=== PATIENT | female | born 1940 | race Caucasian/White ===

== ENCOUNTER 2016-08-21 10:06 | Inpatient (IN) | payer MEDICARE ==
[~2016-08-21] VITALS: Ht 153 cm; Wt 87.3 kg
[2016-08-21] VITALS (8 sets, daily range): BP systolic 146–181; BP diastolic 86–106; PULSE 70–88; RESP 17–22; O2SAT 94–99
[~2016-08-21 10:06] MED LIST: CHOL10008 PO; FENO145T19 PO; HYDR-4003 PO; LISI40TA PO; MULT-1018 PO; OMEG-38 PO; RIVA10TA PO; SIMV20TA4 PO
--- NOTE | 2016-08-21 10:17 | ED.REPORT ---
HPI-Dyspnea / Wheezing Date of Service Aug 21, 2016 ED Provider: Valente Dugan MD 76 year old female with a history of anxiety, HTN, and hyperlipidemia presents to the ER complaining of episodic shortness of breath onset "a couple weeks ago ", worsening today. She reports that symptoms onset upon receiving the bill for her recent hip replacement surgery, and attributes her symptoms to anxiety surrounding this. Symptoms are exacerbated by minimal exertion, and relieved by remaining at rest. Typically it takes her 10 minutes to recover from these episodes. Associated symptom of chest pressure described as "heaviness". Patient denies chest pain, diaphoresis, nausea, lightheadedness, and history of significant cardiopulmonary disease. Nursing Notes Stated Complaint: HARD TIME BREATHING Chief Complaint: Respiratory Complaints Nursing Notes Reviewed: Yes ([employer], [employer] not reconciled) Allergies: Coded Allergies: Penicillins (Verified Allergy, Unknown, throat swelling, 08/21/16) Scheduled Cholecalciferol (Vitamin D3) (Vitamin D3) 1,000 Unit Tab.chew 1,000 UNIT PO DAILY Fenofibrate Nanocrystallized (Fenofibrate) 145 Mg Tablet 145 MG PO DAILY Lisinopril (Lisinopril) 40 Mg Tablet 40 MG PO DAILY Multivitamin (Multi Vitamin Daily) 1 Each Tablet 1 EACH PO DAILY [place]-3/Dha/Epa/Fish Oil (Fish Oil 1,000 mg Softgel) 1 Each Capsule 1 EACH PO DAILY Rivaroxaban (Xarelto) 10 Mg Tablet 10 MG PO DAILY Simvastatin (Simvastatin) 20 Mg Tablet 20 MG PO HS Scheduled PRN Hydrocodone-Acetaminophen 5-325 mg (Hydrocodone-Acetaminophen 5-325 mg) 1 Each Tablet 1 TABLET PO Q6H PRN PRN For Pain General Time Seen by MD: 10:16 Chief Complaint Shortness of breath Hx Obtained From: Patient Arrived By: Walk-in Sudden in Onset?: Yes Onset Occurred: More than a week ago... ("a couple weeks ago") Context of Onset: Anxiety Symptom Duration: Intermittent Associated with: Reports: Anxiety, Denies: Diaphoresis, Nausea, Vomiting Context Related History: Reports: Anxiety Past Medical History Past Medical History Hypertension Hyperlipidemia "Prediabetes" History of osteoarthrosis History of anxiety and depression History of rectal cancer, s/p chemo and radiation ho benign pancreas and adrenal mass (pt reports extensive w/u 2015) Past Surgical History Left hip 06/2016 Partial hysterectomy splenectomy (2016) Social History Alcohol Use: Denies alcohol use Drug Use: Denies drug use Review of Systems Review of Systems Note: +Chest Pressure Constitutional: Denies: Chills, Fever Respiratory: Reports: Shortness of breath, Denies: Non-productive cough Cardiovascular: Denies: Chest pain Musculoskeletal: Denies: Back pain, Extremity pain, Joint pain, Lumbar pain, Neck pain, Thoracic pain Skin: Denies Diaphoresis Complete sys rev & neg: except as marked. Neurologic: Denies: Dizziness, Headache, Lightheaded Psychiatric: Reports: Anxiety, Stress Physical Exam Initial Vital Signs Vital Signs (First) Date Time Temp Pulse Resp B/P Pulse Ox O2 Delivery O2 Flow Rate FiO2 08/21/16 10:11 36.2 88 22 181/106 98 Room Air 08/21/16 13:56 2 Initial VS: Reviewed, Vital signs abnormal (severe HTN) Head / Eyes: Atraumatic, Normocephalic Abdomen / GI: Soft, Non-tender, No guarding, No rebound, No distention Extremities: Vascular intact, Neuro intact, No swelling, No tenderness Skin: Warm, Dry, No cyanosis Neurologic: Alert, Oriented, Nonfocal General/Constitutional: Awake, Alert, Well developed, Well nourished Distress / Hydration: Positive: Distress mild Behavior: Positive: Anxious Neck: Atraumatic, Supple, No meningismus, Full range of motion, No swelling, Non-tender, No masses Respiratory / Chest: Breath sounds NL, Breath sounds = bilat, No respiratory distress, No rales, No rhonchi, No wheezing, No retractions, No stridor Cardiovascular: Heart rate NL, Regular rhythm, Heart sounds NL, Peripheral circulation NL Interpretation & Diagnostics Lab Results Interpretation Result Diagram: 08/21/16 1037 08/21/16 1037 Test 08/21/16 10:37 White Blood Count 9.7th/mm3 (3.8-10.1) Red Blood Count 4.08mil/mm3 (3.90-5.20) Hemoglobin 12.5g/dL (12.0-15.6) Hematocrit 38.2% (35.0-46.0) Mean Corpuscular Volume 93.6fL (81-100) Mean Corpuscular Hemoglobin 30.6pg (27.0-35.0) Mean Corpuscular Hemoglobin Concent 32.7% (32.0-37.0) Red Cell Distribution Width 14.2% (12.3-15.4) Platelet Count 355bil/L (150-400) Neutrophils (%) (Auto) 68.0% (40-74) Lymphocytes (%) (Auto) 17.9% (14-46) Monocytes (%) (Auto) 10.8% (4-12) Eosinophils (%) (Auto) 2.9% (0-5) Basophils (%) (Auto) 0.2% (0-3) D-Dimer 12.3mg/L (<0.50) Sodium Level 139mEq/L (134-144) Potassium Level 4.1mEq/L (3.5-5.2) Chloride Level 102mEq/L (97-108) Carbon Dioxide Level 22mmol/L (18-29) Blood Urea Nitrogen 18mg/dL (8-27) Creatinine 0.79mg/dL (0.57-1.00) Estimat Glomerular Filtration Rate 102mL/min (>59) Glucose Level 153mg/dL (60-99) Calcium Level 9.6mg/dL (8.5-10.1) Magnesium Level 1.8mg/dL (1.6-2.6) Total Bilirubin 0.4mg/dL (0.0-1.2) Aspartate Amino Transf (AST/SGOT) 24U/L (0-50) Alanine Aminotransferase (ALT/SGPT) 16U/L (0-32) Alkaline Phosphatase 56U/L (25-165) Troponin T < 0.010ug/L (0.0-0.011) Total Protein 7.4g/dL (6.4-8.4) Albumin 4.1g/dL (3.4-5.0) Lab Results Interpretation: CBC normal CMP normal D-dimer severely elevated Troponin negative ECG Interpretation ECG Interpretation: Sinus rhythm, rate 69 Time: 10:39 Interpreted by: ED physician X-Ray Chest Interpretation Chest Xray Interpretation: IMPRESSION: No acute pulmonary process. Dictated by: Yolis Broussard M.D. on 08/21/2016 at 11:23 Approved by: Yolis Broussard M.D. on 08/21/2016 at 11:23 View: Portable, 1 view Interpretation / Wet Read by: Interpret - Radiologist CT Chest Interpretation IMPRESSION: 1. Bilateral, right greater than left pulmonary emboli. 2. New left upper quadrant abnormality as described above, possibly indicating chronic hematoma. IV and oral contrast enhanced CT of the abdomen and pelvis is recommended for further assessment, and to exclude neoplasm. 3. No change in right adrenal adenoma versus adenomyelolipoma. 4. Findings discussed with Dr. Dugan on 08.21.16 at 1315 hrs. Dictated by: Allison Jones M.D. on 08/21/2016 at 13:26 Approved by: Allison Jones M.D. on 08/21/2016 at 13:26 Study type: CT pulm angiogram Interpretation / Wet Read by: Interpret - Radiologist Re-Eval/Medical Decision Med Decision/Clinical Course This is a 76-year-old female who in June underwent a left hip replacement, who now presents with increasing dyspnea on exertion. Symptoms worsen over the past couple weeks, and she reports even minimal exertion leaves her gasping for air. She has been wanted to blame it on anxiety, finally decided to come to the emergency department when her neighbor came over to help her collect X were chickens, and noticed how severely began with minimal exertion, I commented that that was dramatically unusual. Therefore the patient came directly to the ED. Denies fever, cough, she denies symptoms at rest, she denies leg swelling. She denies prior history of DVT PE. She reports a previous history of a treated treated malignancy, and then noticed she was diagnosed with an incidental benign abdominal pancreatic(?) Mass which reports undergoing an extensive workup through oncology over last year, for which she was told it was benign, and then no findings of malignancy. Details are unclear. Here in the department apparently the patient was quite dipstick when she walked into triage, on resting on the gurney, the patient is not visibly dyspneic. She has clear lungs, she is not tachycardic or hypoxic. She is mildly hypertensive. EKG revealed no ischemic changes. Blood work was notable for severely elevated d-dimer so this patient's undergone recent hip surgery a CT angios obtained and was positive for PE. An incidental density in the abdomen was noted, which sounds like it may be the abnormality patient describes as having undergone extensive workup last year for-I do not have clear records or details of what all was involved in that. Patient has no troponin elevation, no overt signs of failure, no hemodynamic instability and is not a candidate for TPA. No contraindications to quite ablation, started on heparin. She is being admitted for continued management was likely a postsurgical PE 6 weeks following hip surgery. Source of Hx: Old records Re-Evaluation/Progress #1: Time of Eval: 13:19 Re-Evaluation/Progress Note: Discussed lab and radiology results and plan to admit. Patient understands and agrees to the plan. All other questions addressed. Re-Evaluation/Progress #2: Time of Eval: 14:50 Re-Evaluation/Progress Note: Updated re: bed capacity. Attempting to locate beds, currently none available. Re-Evaluation/Progress #3: Time of Eval: 15:25 Re-Evaluation/Progress Note: Currently no beds available at [facility], and no other beds identified locally Bed search remains underway. Re-Evaluation/Progress #4: Time of Eval: 15:34 Re-Evaluation/Progress Note: Bed identified here, patient can go to the PCU Consultation #1: Referral / Consult Name: Allison Jones MD Call Returned at: 13:06 Note: Dr. Jones, Radiology, called to discuss CT results. Positive for PE. Consultation #2: Referral / Consult Name: Edvin Gusman MD Consulted With: Hospitalist Call Returned at: 15:35 Associate Counsel: Accepts admit Note: Case discussed. Differential Diagnosis: Positive: Pulmonary embolism, Negative: Acute coronary syndrome, Cardiogenic shock, Congestive heart failure, Hypertensive emergency, Myocardial infarction, Pericarditis, Pneumonia , Pneumothorax, Respiratory failure, Respiratory insufficiency Counseled Regarding: Diagnosis, Lab results, Need for admission Discharge & Departure Impression: Primary Impression: Pulmonary embolism Pulmonary embolism type: other Chronicity: acute Acute cor pulmonale presence: without acute cor pulmonale Qualified Code: I26.99 - Other pulmonary embolism without acute cor pulmonale Disposition: ADMITTED TO HOSPITAL Discharge Condition All VS Reviewed: Yes Condition: Stable Referrals: Pinky Nolen PA-C (PCP) Gallo Attestation Portions of this note were transcribed by Toi Sarkar. I, Dr. Dugan, personally performed the history, physical exam and medical decision-making; I reviewed and confirmed the accuracy of the information in the transcribed note. Signed by: Gallo Rivero, 08/21/2016 and 14:33 copies to: Pinky Nolen PA-C, Matthew F MD Aug 21, 2016 10:17 TOI SARKAR Aug 21, 2016 10:25
[2016-08-21 10:48] LABS: BASOPHILS % (AUTO) 0.2 % (0-3); EOSINOPHILS % (AUTO) 2.9 % (0-5); MONOCYTES % (AUTO) 10.8 % (4-12); Mean Corpuscular Hemoglobin 30.6 pg (27.0-35.0); Mean Corpuscular Volume 93.6 fL (81-100); Platelet Count 355 bil/L (150-400)
[2016-08-21 11:18] LABS: TROPONIN T < 0.010 ug/L (0.0-0.011)
[2016-08-21 11:24] LABS: Magnesium 1.8 mg/dL (1.6-2.6)
--- NOTE | 2016-08-21 11:24 | DRSVH ---
PROCEDURE: X-RAY CHEST ONE VIEW, PORTABLE ([id number]) INDICATIONS: SOB TECHNIQUE: One view of the chest was acquired. COMPARISON: [facility], , XR CHEST 2VW, 04/22/2015, 11:40. FINDINGS: Surgical changes and devices: None. Lungs and pleura: No pleural effusions or pneumothorax. Lungs are clear. Mediastinum: Mediastinal contours appear normal. Heart size is mildly enlarged. Bones and chest wall: No suspicious bony lesions. Overlying soft tissues appear unremarkable. IMPRESSION: No acute pulmonary process. Dictated by: Yolis Broussard M.D. on 08/21/2016 at 11:23 Approved by: Yolis Broussard M.D. on 08/21/2016 at 11:23
[2016-08-21] MEDS ORDERED: Heparin 25K Unit/500mL 0.45 NS 25,000 UNIT in IV Premix 1 EACH IV ONE (13:10)
[2016-08-21] MEDS ORDERED: Heparin 5,000 Unit/mL Inj IVPUSH ONE (13:10)
--- NOTE | 2016-08-21 13:28 | DRSVH ---
PROCEDURE: CT ANGIO CHEST PULMONARY EMBOLISM ([id number]) INDICATIONS: STRANGE, Dimer 12.9 TECHNIQUE: After the administration of intravenous contrast, 2 mm thick sections acquired from the pulmonary api eddie to the posterior costophrenic angles. 3-dimensional maximum intensity projection (MIP) coronal a nd sagittal reformats were then acquired through the thorax. For radiation dose reduction, the follo wing was used: automated exposure control, adjustment of mA and/or kV according to patient size. COMPARISON: [facility], CT, ABDOMEN W&W/O CONTRAST, 02/17/2015, 8:31. FINDINGS: Image quality: Excellent. Pulmonary arteries: There are occlusive filling defects seen within the right upper lobe pulmonary ar leanna, extending into the segmental and subsegmental branches of the right upper lobe. There are filli ng defects seen within the segmental and subsegmental branches of the right middle and right lower lo bes. There are subsegmental filling defects seen within the pulmonary arteries to the lingula and lef t medial lung base. Lungs and pleura: Lungs are clear. No pleural effusions or pneumothorax. Central and peripheral ai rways are patent. Mediastinum: Heart size is normal, without pericardial effusion. No mediastinal or hilar adenopathy . Thoracic aorta is normal in caliber and enhancement. Esophagus is normal in caliber, without hiat al hernia. Bones and chest wall: No suspicious bony lesions. Ribs and thoracic spine appear intact throughout. Thyroid gland is within normal limits. No axillary or supraclavicular adenopathy. Abdomen: Visualized portions of the upper abdomen demonstrate a new, incompletely visualized 12.4 cm diameter low-density focus with a small amount of layering high density, possibly indicating a chron ic hematoma. There is mass effect upon the gastric body. No change in low-density right adrenal nodul e measuring 28 mm, and 8 Hounsfield units, consistent with an adenoma or adenomyelolipoma. IMPRESSION: 1. Bilateral, right greater than left pulmonary emboli. 2. New left upper quadrant abnormality as described above, possibly indicating chronic hematoma. IV a nd oral contrast enhanced CT of the abdomen and pelvis is recommended for further assessment, and to exclude neoplasm. 3. No change in right adrenal adenoma versus adenomyelolipoma. 4. Findings discussed with Dr. Dugan on 08.21.16 at 1315 hrs. Dictated by: Allison Jones M.D. on 08/21/2016 at 13:26 Approved by: Allison Jones M.D. on 08/21/2016 at 13:26
[2016-08-21] MEDS ORDERED: Alum-Mag Hydrox-Simeth 30 mL Suspension PO PRN (15:35)
[2016-08-21] MEDS ORDERED: Ondansetron 2 mg/mL 2 mL Inj IVPUSH PRN (15:35)
--- NOTE | 2016-08-21 15:44 | PCM.HPMED ---
Subjective Date of Service Aug 21, 2016 Primary Provider: Admitting Physician: Primary Care Physician: Pinky Nolen PA-C Attending Physician: Chief Complaint: Short of breath on exertion HISTORY was OBTAINED FROM PATIENT / MEDITECH NOTES History of present illness 74-year-old female, underwent hip replacement Dr. Heredia, discharged with xarelto on 06/27- for 35 days untilthe end of July, then she started using celebrex since no longer on blood thinner, at which point at the beginning of August, started gradual SOB. In the ER, pt indicates 1.5 weeks of shortness of breath on exertion, progressive, most notable today for walking across the room by her neighbors. No phelgm, no cough , no f/c, no O2 before. no inhalers except after 1 pneumonia. no ASA use. splenectomy hx 2015 due to hemorrhage intra op w/ pancreatic benign mass removed at . no estrogen use. She sees regularly Dr. Leigh/Oncology, with no recurrent rectal cancer. last colonscopy/EGD 2015. not immobilized, very active. Prior to splenectomy, no prior VTE post op. In ER, HDS, 148/92 , heparin gtt started, Ativan for anxiety Review of Systems - none of the following - F/C/sick contact / wt change/ [place] / lightheaded / dizziness / n/v/diarrhea/constipation / bleeding/bruising / leg swelling / change in voiding / yeast infections / rash poor appetite since hip replacement. GERD w/ herbal tea. ambulatory w/o assist currently FAMILY HX no DVTs, arthritis SOCIAL HX-edible marijuana, never smoked MEDICATIONS Scheduled Cholecalciferol (Vitamin D3) (Vitamin D3) 1,000 Unit Tab.chew 1,000 UNIT PO DAILY Fenofibrate Nanocrystallized (Fenofibrate) 145 Mg Tablet 145 MG PO DAILY Lisinopril (Lisinopril) 40 Mg Tablet 40 MG PO DAILY Multivitamin (Multi Vitamin Daily) 1 Each Tablet 1 EACH PO DAILY [place]-3/Dha/Epa/Fish Oil (Fish Oil 1,000 mg Softgel) 1 Each Capsule 1 EACH PO DAILY Rivaroxaban (Xarelto) 10 Mg Tablet 10 MG PO DAILY -- off Simvastatin (Simvastatin) 20 Mg Tablet 20 MG PO HS Scheduled PRN Hydrocodone-Acetaminophen 5-325 mg (Hydrocodone-Acetaminophen 5-325 mg) 1 Each Tablet 1 TABLET PO Q6H PRN PRN For Pain Past Medical/Surgical HX Hypertension Hyperlipidemia "Prediabetes" History of anxiety and depression Cataracts Pneumonia Rectal cancer, s/p chemo and radiation pancreatectomy/splenectomy Hysterectomy/urinary incontinence OAB DJD/osteoarthritis/left knee replacement Cholecystectomy Allergies Coded Allergies: Penicillins (Verified Allergy, Unknown, throat swelling, 08/21/16) PMH Social History Hx Alcohol Use: No Hx Substance Use: Yes (edible marijuana- randomly) Exam Vital Signs Vital Sign - Last Date Time Temp Pulse Resp B/P Pulse Ox O2 Delivery O2 Flow Rate FiO2 08/21/16 13:56 70 19 148/92 95 Nasal Cannula 2 08/21/16 10:11 36.2 Lab and Diagnostics Labs Exam on admission 2L NC NAD A and O x 3 mood affect WNL NC/AT no icterus no injected eyes EOMI PERRL /no pharyngeal lesions/ no oral lesions / hearing intact Supple neck CTAB equal chest rise / no accessory muscle use / speaks in full sentences / no rrw RRR S1 S2 / no mrg / 2+ radial pulses Soft nt nd + BS no hepatosplenomegaly Trace left angel edema no edema right leg, no cyanosis no ecchymosis of lower extremities No rash / no jaundice HADLEY EKG 69SR, no ST changes except subtle T inversion in Right lead Qt 442 Trop neg x 1 PROCEDURE: CT ANGIO CHEST PULMONARY EMBOLISM ([id number]) INDICATIONS: STRANGE, Dimer 12.9 TECHNIQUE: After the administration of intravenous contrast, 2 mm thick sections acquired from the pulmonary apices to the posterior costophrenic angles. 3-dimensional maximum intensity projection (MIP) coronal and sagittal reformats were then acquired through the thorax. For radiation dose reduction, the following was used: automated exposure control, adjustment of mA and/or kV according to patient size. COMPARISON: [facility], CT, ABDOMEN W&W/O CONTRAST, 02/17/2015, 8: 31. FINDINGS: Image quality: Excellent. Pulmonary arteries: There are occlusive filling defects seen within the right upper lobe pulmonary artery, extending into the segmental and subsegmental branches of the right upper lobe. There are filling defects seen within the segmental and subsegmental branches of the right middle and right lower lobes. There are subsegmental filling defects seen within the pulmonary arteries to the lingula and left medial lung base. Lungs and pleura: Lungs are clear. No pleural effusions or pneumothorax. Central and peripheral airways are patent. Mediastinum: Heart size is normal, without pericardial effusion. No mediastinal or hilar adenopathy. Thoracic aorta is normal in caliber and enhancement. Esophagus is normal in caliber, without hiatal hernia. Bones and chest wall: No suspicious bony lesions. Ribs and thoracic spine appear intact throughout. Thyroid gland is within normal limits. No axillary or supraclavicular adenopathy. Abdomen: Visualized portions of the upper abdomen demonstrate a new, incompletely visualized 12.4 cm diameter low-density focus with a small amount of layering high density, possibly indicating a chronic hematoma. There is mass effect upon the gastric body. No change in low-density right adrenal nodule measuring 28 mm, and 8 Hounsfield units, consistent with an adenoma or adenomyelolipoma. CTPE - IMPRESSION: 1. Bilateral, right greater than left pulmonary emboli. 2. New left upper quadrant abnormality as described above, possibly indicating chronic hematoma. IV and oral contrast enhanced CT of the abdomen and pelvis is recommended for further assessment, and to exclude neoplasm. 3. No change in right adrenal adenoma versus adenomyelolipoma. 4. Findings discussed with Dr. Dugan on 08.21.16 at 1315 hrs. PROCEDURE: X-RAY CHEST ONE VIEW, PORTABLE ([id number]) INDICATIONS: SOB TECHNIQUE: One view of the chest was acquired. COMPARISON: [facility], CR, XR CHEST 2VW, 04/22/2015, 11:40. FINDINGS: Surgical changes and devices: None. Lungs and pleura: No pleural effusions or pneumothorax. Lungs are clear. Mediastinum: Mediastinal contours appear normal. Heart size is mildly enlarged. Bones and chest wall: No suspicious bony lesions. Overlying soft tissues appear unremarkable. IMPRESSION: No acute pulmonary process. Result Diagram: 08/21/16 1037 08/21/16 1037 Assessment & Plan Active issues and reason for admission Right greater than left pulmonary embolism due to hypercoagulable state associated with splenectomy and recent hip replacement, complicated by incidental chronic hematoma and history of rectal cancer. -- Heparin drip, dural toe 15 twice a day 3 weeks then 20 daily. -- Call her oncologist in the morning Dr. Salas. Question of Chronic hematoma on the lateral aspect of the chest CT and prior cancer history -- Pending CT abdomen and pelvis by mouth IV contrast Chronic issues known prior to admission, present on admission Hypertension Hyperlipidemia "Prediabetes" History of anxiety and depression Rectal cancer, s/p chemo and radiation pancreatectomy/splenectomy Hysterectomy/urinary incontinence OAB DJD/osteoarthritis/left knee replacement Cholecystectomy --- Sliding scale insulin, resume home medications Diet diabetic DVT prophylaxis anticoagulated Code full Disposition inpatient Assessment and plan were discussed with patient. Edvin Gusman MD Aug 21, 2016 15:44
--- NOTE | 2016-08-21 18:24 | NUR ---
Admit Pt. transferred from ER. On arrival, she was alert and oriented x3. Oriented pt. to room, call light, TV, etc. Instructed pt. to call for assistance before exiting bed due to her SOBOE. Heparin IV started in ER. It's infusing at 18 u/kg/hr. Next PTT scheduled at 1900. Indications and side effects of Heparin IV discussed. Pt. verbalized understanding.
[2016-08-21 20:24] LABS: APPEARANCE,URINE CLEAR (CLEAR,HAZY); COLOR,URINE YELLOW (YELLOW); OCCULT BLOOD,URINE NEGATIVE (NEGATIVE); UROBILINOGEN,URINE NORMAL (NORMAL)
[2016-08-21] MEDS ORDERED: hydrALAZINE 20 mg/mL Inj IV PRN (21:25)
[2016-08-21] MEDS ORDERED: MeTOProlol 1 mg/mL 5 mL Inj IVPUSH PRN (21:25)
[2016-08-21] MEDS: ALPRAZolam 0.5 mg Tablet PO PRN (22:31)
[2016-08-22] VITALS (9 sets, daily range): BP systolic 126–167; BP diastolic 81–100; PULSE 59–76; RESP 18; O2SAT 94–97
[2016-08-22] MEDS ORDERED: Glucose 40% Oral Gel 15 Gm Tube PO PRN (00:30)
[2016-08-22 05:52] LABS: BASOPHILS % (AUTO) 0.3 % (0-3); EOSINOPHILS % (AUTO) 5.1 % (0-5); Mean Corpuscular Hemoglobin 30.4 pg (27.0-35.0); NEUTROPHILS % (AUTO) 60.2 % (40-74); Platelet Count 377 bil/L (150-400)
[2016-08-22 06:01] LABS: INR 1.06 ratio
[2016-08-22 06:04] LABS: TROPONIN T 0.01 ug/L (0.0-0.011)
--- NOTE | 2016-08-22 06:29 | NUR ---
anticoagulation: pt. was on heparin drip, xarelto started 08-21-16 at 2030, per hospitalist dc heparin drip once xarelto is started, PTT went from 91 down to 30.5 INR is 1.05
[2016-08-22] MEDS: Insulin LISPRO 300 Unit/3 mL Inj SUBQ SCH ×4 (08:00→21:30)
[2016-08-22] MEDS: Lisinopril 40 Tablet PO SCH (11:21)
--- NOTE | 2016-08-22 11:23 | DRSVH ---
[facility] [address] [place] [address] Echocardiogram Report Name: JAY BARNARD EStudy Date : 08/22/2016 Height: 60 in Hospital Exam Location: [facility] Weight: 193 lb Gender: Female BSA: 1.8 m2 : 1940 Age: 76 yrs BP: 162/90 mmHg Reason For Study: PULMONARY EMBOLISM Ordering Physician: Performed By: Chris Marmolejo Referring Physician: ORLY WEEKS Interpretation Summary Normal left ventricle size with ejection fraction 65-70%. Grade I diastolic dysfunction. Normal right ventricle size and function. Mildly dilated left atrium. Mild aortic valve sclerosis. Pulmonary artery pressures cannot be estimated because of the lack of a measurable TR jet velocity. Procedure: A two-dimensional transthoracic echocardiogram with color flow and Doppler was performed. The study quality was technically adequate. There is no prior echocardiogram noted for this patient. The patient was in normal sinus rhythm during the exam. Left Ventricle: The left ventricle is normal in size. There is normal left ventricular wall thickness. The ejection fraction is estimated to be 65-70%. Left ventricular wall motion is normal. Assessment of diastolic parameters indicates a relaxation abnormality of the left ventricle, consistent with normal filling pressures. Right Ventricle: The right ventricle is normal in size, thickness and function. Atria: The left atrium is mildly dilated. Right atrial size is normal. The interatrial septum is intact with no evidence for an atrial septal defect. Mitral Valve: The mitral valve is normal. There is no mitral regurgitation noted. Aortic Valve: The aortic valve is trileaflet. There is mild aortic valve sclerosis. The peak aortic velocity is 2.1 m/sec. The aortic valve mean gradient is 7 mmHg. There is no hemodynamically significant valvular aortic stenosis. No aortic regurgitation is present. Tricuspid Valve: The tricuspid valve is normal. There is a trace or physiologic amount of tricuspid regurgitation. Pulmonary artery pressures cannot be estimated because of the lack of a measurable TR jet velocity. Pulmonic Valve: The pulmonic valve is not well visualized. There is a trace or physiologic amount of pulmonic regurgitation. Great Vessels: The aortic root is normal size. The dimensions of the ascending aorta are normal. The pulmonary artery is normal size. The IVC is of normal diameter and collapses greater than 50% with a sniff. This suggests a low right atrial pressure of 3 mm Hg. Pericardium/ Pleura There is no pericardial effusion. There is no pleural effusion. MMode/2D Measurements & Calculations LVIDd: 5.0 cm RA long axis LVOT diam: 2.1 cm LVIDs: 2.9 cm LA A2 area: 20.6 cm AoV Opening FS: 40.7 % LA A4 area: 20.8 cm RA area EPSS: 0.24 cm LA length (vol) Ao root diam IVSd: 0.94 cm : 16.3 cm LVPWd: 0.84 cm LA vol: 71.3 ml RA vol asc Aorta Diam LA vol index : 43.4 ml RA Ao Arch Diam (Prox : 38.8 ml/m2 : 23.6 mm2 Trans): 3.3 cm LV mcdonald. diameter/BSA LV sys. diameter/BSA (cm/m^2): 2.7 (cm/m^2): 1.6 Doppler Measurements & Calculations Ao V2 max: 206.3 cm/secMV E max yunior MV E/A: 0.65 PA V2 max Ao max P.0 mmHg : 65.9 cm/sec Med Peak E' Yunior : 74.8 cm/sec Ao mean P.2 mmHg MV A max yunior PA mean PG LVOT Max Yunior : 100.5 cm/sec E/E' med: 20.9 : 1.4 mmHg : 132.6 cm/sec Lat Peak E' Yunior RADHA(I,D): 2.4 cm E/E' lat: 10.6 sev ratio: 0.71 E/e' average MV A dur: 0.13 sec MV dec time: 0.30 sec Ao V2 mean LV V1 max PG PA V2 mean : 125.7 cm/sec : 58.4 cm/sec Ao V2 VTI: 37.8 cm LV V1 VTI: 26.8 cmPA pr(Accel) : 40.1 mmHg RADHA(V,D): 2.2 cm2 RADHA indexed to BSA (cm^2/m^2): 1.3 Electronically signed by: Chio Lau on Reading Physician:08/22/2016 11:22 AM
--- NOTE | 2016-08-22 11:33 | NUR ---
Social Work Initial Assessment: SW met with patient at bedside to discuss discharge plan. Patient verified name, address, and contact information. Patient is a 76 year old female admitted on 08/21/16 for PE. Patient resides in [place] alone in one termo home. Patient state payer as [employer]. PCP as MD Nolen. Patient has no group home disability nor VA benefits. Patient emergency contact as daughter Babita, . Patient pharmacy of choice as [facility]. Patient has previous HHC history. Patient states having SNF history at [facility] in past. Patient has a walker and wheelchair at home. Patient has AD and was encouraged to bring in from home. Patient states being independent with needs and drives. No anticipated discharge needs identified at this time. Patient denied need for HHC at this time. SW to follow. PLAN: Home independently via POV, pending clinical course. SW to follow. Ramone CLARK Addendum: 08/22/16 at 1140 by LIYA ARGUETA Amended: Links added.
--- NOTE | 2016-08-22 15:09 | NUR ---
Blood Glucose, CT Scan Blood Glucose - Her blood glucose was 143 this morning. She respectfully declined to have further blood glucose checks the rest of the day as they had been below 140 during the night and she preferred not to be stuck with a lancet. CT Scan - She left [facility] [address] scan at 1315. V Belt Builder notified. She returned about 1330. Care continues.
--- NOTE | 2016-08-22 16:23 | NUR ---
spiritual care; pt request visit attempt X2; pt sleeping
--- NOTE | 2016-08-22 16:49 | DRSVH ---
PROCEDURE: CT ABDOMEN AND PELVIS WITH CONTRAST ([id number]) INDICATIONS: hematoma abdomen, hx of cancer TECHNIQUE: After the administration of oral and intravenous contrast, 5 mm thick sections acquired from the diap hragms to the symphysis. 5 mm thick coronal and sagittal reformats were performed. For radiation do se reduction, the following was used: automated exposure control, adjustment of mA and/or kV accordi ng to patient size. COMPARISON: [facility], CT, ABDOMEN W&W/O CONTRAST, 02/17/2015, 8:31. [facility], CT, ABD/PELVIS W/CON (PNL), 11/22/2014, 11:11. [facility], CT, CT ANGIO CHEST PE, 08/21/2016, 12:48. FINDINGS: Image quality: Excellent. ABDOMEN: Lung bases: Lung bases are clear. Heart size is normal. Solid organs: Liver is mildly enlarged with steatosis. Right hepatic lateral fat sparing is suspecte d. normal in size and enhancement. Gallbladder has been removed. Biliary system is non-dilated. Pa ncreas demonstrates mid body and tail resection. Right adrenal mass is unchanged. Kidneys are normal in size and enhancement, without hydronephrosis. Peritoneum and bowel: Stomach, small bowel, and colon loops are normal in caliber and wall thickness . The previously identified oval low density focus with layering hyperdensity in the left upper quadr ant is again identified. It has not significantly changed in size measuring 11.7 cm AP by 6.5 cm rodrigues sverse compared to 12.0 cm AP by 6.6 cm transverse. Nodes and vessels: No retroperitoneal or mesenteric adenopathy. Aorta and inferior vena cava are no rmal in caliber. Miscellaneous: Fat-containing ventral hernias are present. PELVIS: Genitourinary: Bladder wall thickness is normal. Miscellaneous: No inguinal hernias or adenopathy. Bones: No suspicious bony lesions. No vertebral body compression fractures. Left hip arthroplasty is present, with subsequent metallic artifact projecting over the lower pelvis. There is an oval low attenuation structure projecting along the lateral aspect of the hip into the subcutaneous fat measur ing approximately 40 mm AP by 28 mm transverse. No priors are available for comparison. This appears to be in direct approximation with the skin surface. Minimal surrounding inflammatory change is ident ified. IMPRESSION: 1. Relatively unchanged appearance of likely left upper quadrant hematoma. 2. There is a low attenuation structure with rim enhancement within the subcutaneous fat of the left hip appearing to extend to the skin surface. This could be related to an old surgical seroma seconda ry to hip arthroplasty. Other etiologies can include abscess. Recommend clinical correlation to pain within this region and direct visualization of skin surface related to a potential fistulous tract. Dictated by: Yolis Broussard M.D. on 08/22/2016 at 16:47 Approved by: Yolis Broussard M.D. on 08/22/2016 at 16:47
--- NOTE | 2016-08-22 17:50 | PCM.PROC ---
Procedure Note Procedure: Procedure: Osteopathic Manipulative Treatment Subjective: Patient was seen and examined today at bedside. Patient is complaining of left hip tender point and left knee pain. Patient states that the pain has been present since her total hip arthroplasty on 06/27/2016. The patient states that she has brought this up with her orthopedic surgeon who is not concerned at this time. The area is not erythematous, nonedematous with point tenderness at the surgical site. Patient states that direct pressure on that area makes the pain worse and lying in bed all day makes the pain worse. Walking around helps to alleviate the pain. Risks and benefits of OMT were explained to the patient and verbal consent obtained. Osteopathic Structural Exam: Pelvis: Left anterior innominate Sacrum: Left SI joint compression Lower extremities: Tender point left lateral hip area near IT band insertion, left popliteal congestion, mild patellotibial malalignment Patient responded well to treatment stating that her left hip and knee pain had decreased posttreatment. Osteopathic techniques used: Myofascial release, BLTasha, Cassandra Jara DO Aug 22, 2016 17:50
--- NOTE | 2016-08-22 18:17 | PCM.PNMED ---
Subjective Date of Service Aug 22, 2016 Subjective Patient was seen and examined at bedside. Patient stated that she is still having some shortness of breath especially with exertion. Patient is currently using oxygen which seems to help relieve the shortness of breath. Patient also complains of left hip point tenderness. Patient denies chest pain, fever, chills, nausea, vomiting, diarrhea, black or tarry stools. Exam Vital Signs Vital Sign - Last Date Time Temp Pulse Resp B/P Pulse Ox O2 Delivery O2 Flow Rate FiO2 08/22/16 13:32 36.5 68 18 126/92 97 Nasal Cannula 2.00 Intake and Output 08/21/16 08/21/16 08/22/16 Cumulative From/Thru 15:00 23:00 07:00 08/21/16 10:11 - 08/22/16 06:02 Intake Total 108 ml 0 ml 108 ml Output Total 350 ml 350 ml Balance 108 ml -350 ml -242 ml Intake Oral 0 ml 0 ml IV Total 108 ml 108 ml Output Urine Total 350 ml 350 ml # Bowel Movements 0 0 Exam Physical Exam: GEN: Patient was awake, alert, responding appropriately to questions HEENT: PERRLA, EOMI, Neck soft supple, trachea midline, nomocephalic/atraumatic CV: +S1/S2, RRR, no murmurs auscultated Respiratory: CTAB, no wheezes, rales, rhonchi GI: +bowel sounds x4, soft, compressible, non TTP EXT: no c/c/e Neuro: CN II-XII grossly intact Psych: mood and affect were appropriate Skin: Warm, dry, no signs of erythema or edema IVs and Medications Medications Reviewed: Medications were reviewed in detail Medications Current Medications Alprazolam 0.5 mg TID PRN PO Last administered on 08/21/16 22:31; Admin Dose 0.5 MG; Start 08/21/16 at 17:05 Aspirin 162 mg NOW ONCE PO Last administered on 08/21/16 10:53; Admin Dose 162 MG; Start 08/21/16 at 10:40; Stop 08/21/16 at 10:43; Status DC Atorvastatin Calcium 20 mg HS PO Last administered on 08/21/16 21:16; Admin Dose 20 MG; Start 08/21/16 at 21:00 Fenofibrate 145 mg DAILY PO Last administered on 08/22/16 11:21; Admin Dose 145 MG; Start 08/22/16 at 08:30 Heparin Sodium (Porcine) 6550 unit 6,550 unit ONCE ONCE IVPUSH Last administered on 08/21/16 13:41; Admin Dose 6,550 UNIT; Start 08/21/16 at 13:10 ; Stop 08/21/16 at 13:11; Status DC Heparin Sodium/ Sodium Chloride/ Premix 500 ml @ 0 mls/hr ONCE ONCE IV Last administered on 08/21/16 13:53; Admin Dose 29.4 MLS/HR; Start 08/21/16 at 13:10 ; Stop 08/21/16 at 13:11; Status DC Lisinopril 40 mg DAILY PO Last administered on 08/22/16 11:21; Admin Dose 40 MG ; Start 08/22/16 at 08:30 Lorazepam 0.5 mg ONCE ONCE IVPUSH Last administered on 08/21/16 10:53; Admin Dose 0.5 MG; Start 08/21/16 at 10:40; Stop 08/21/16 at 10:43; Status DC Rivaroxaban 15 mg BID PO Last administered on 08/22/16 11:21; Admin Dose 15 MG ; Start 08/21/16 at 20:30; Stop 09/11/16 at 08:31 Lab and Diagnostics Result Diagram: 08/22/16 0505 08/22/16 0505 X-Rays, CTs and MRIs CT abdomen and pelvis: IMPRESSION: 1. Relatively unchanged appearance of likely left upper quadrant hematoma. 2. There is a low attenuation structure with rim enhancement within the subcutaneous fat of the left hip appearing to extend to the skin surface. This could be related to an old surgical seroma secondary to hip arthroplasty. Other etiologies can include abscess. Recommend clinical correlation to pain within this region and direct visualization of skin surface related to a potential fistulous tract. Dictated by: Yolis Broussard M.D. on 08/22/2016 at 16:47 Approved by: Yolis Broussard M.D. on 08/22/2016 at 16:47 CT angiogram: IMPRESSION: 1. Bilateral, right greater than left pulmonary emboli. 2. New left upper quadrant abnormality as described above, possibly indicating chronic hematoma. IV and oral contrast enhanced CT of the abdomen and pelvis is recommended for further assessment, and to exclude neoplasm. 3. No change in right adrenal adenoma versus adenomyelolipoma. 4. Findings discussed with Dr. Dugan on 08.21.16 at 1315 hrs. Dictated by: Allison Jones M.D. on 08/21/2016 at 13:26 Approved by: Allison Jones M.D. on 08/21/2016 at 13:26 Cardiac Echo Impressions Interpretation Summary Normal left ventricle size with ejection fraction 65-70%. Grade I diastolic dysfunction. Normal right ventricle size and function. Mildly dilated left atrium. Mild aortic valve sclerosis. Pulmonary artery pressures cannot be estimated because of the lack of a measurable TR jet velocity. Assessment & Plan 76-year-old female presents to the emergency room with the complaint of shortness of breath secondary to right greater than left pulmonary emboli. Right greater than left pulmonary embolism due to hypercoagulable state associated with splenectomy and recent hip replacement, complicated by incidental chronic hematoma and history of rectal cancer. -- Continue Xarelto -- We will contact her oncologist in the morning Dr. Salas. -- We will consult PT Question of Chronic hematoma on the lateral aspect of the chest CT and prior cancer history -- CT of the abdomen and pelvis was performed most likely this is an old surgical seroma secondary to hip arthroplasty. No current signs of infection, more likely consistent with a positive muscular skeletal tender point which responded well to counterstrain. -- We will continue to monitor Hypertension -- Current blood pressure 126/92 -- Continue lisinopril 40 mg daily -- Continue metoprolol 5 mg every 6 hours when necessary and hydralazine 5 mg when necessary Hyperlipidemia -- Continue atorvastatin 20 mg daily at bedtime -- Continue TriCor 145 mg daily Prediabetes -- Accu-Cheks with insulin sliding scale for possible coverage -- Continue diabetic diet History of anxiety and depression -- Continue Xanax 0.5 mg 3 times a day when necessary History of Rectal cancer, s/p chemo and radiation pancreatectomy/splenectomy -- We will contact Dr. Salas in the morning as patient is considered to be in a hypercoagulable state Previous problems prior to admission: Hysterectomy/urinary incontinence OAB DJD/osteoarthritis/left knee replacement Cholecystectomy Diet diabetic DVT prophylaxis anticoagulated on Xarelto Code full Disposition: Patient is currently still short of breath especially with exertion. We will consult PT for recommendations. Patient may need to go home on oxygen. Patient states that she would prefer to go home and not go to a rehabilitation center but is willing to do outpatient physical therapy/ rehabilitation and is amenable to home health services. VTE Prophylaxis: Other (Xeralto) VTE Mechanical Devices: Intermittant Pneumatic CD Resuscitation Status: CPR: Attempt Resuscitation Attending Statement Greater than 30 minutes Cassandra Stoddard DO Aug 22, 2016 18:16
[2016-08-22] MEDS: ALPRAZolam 0.5 mg Tablet PO PRN (18:21)
[2016-08-23] VITALS (11 sets, daily range): BP systolic 118–167; BP diastolic 73–89; PULSE 54–73; RESP 15–18; O2SAT 94–99
[2016-08-23] MEDS: ALPRAZolam 0.5 mg Tablet PO PRN ×2 (05:06→20:21)
[2016-08-23] MEDS: HYDROcodone-APAP 5-325 mg Tablet PO PRN ×3 (05:07→20:21)
--- NOTE | 2016-08-23 05:36 | NUR ---
pt missed hat when voiding numerous times Addendum: 08/23/16 at 0536 by MOLLY JOYCE CNA Amended: Links added.
--- NOTE | 2016-08-23 06:10 | NUR ---
Anxiety: Pt stable throughout the night in NSR on 2L NC of oxygen. Pt slept well and HR noted to drop into the 50s while asleep. Pt woke up anxious and in pain to the L hip. [place] and Xanax administered, however, the pt continues to be emotional this morning; crying in her room. Pt requires no further intervention other than a listening ear. Will cont. to monitor.
[2016-08-23 06:28] LABS: INR 1.13 ratio
[2016-08-23 06:36] LABS: Mean Corpuscular Hemoglobin 30.2 pg (27.0-35.0); Mean Corpuscular Volume 93.2 fL (81-100)
[2016-08-23] MEDS: Insulin LISPRO 300 Unit/3 mL Inj SUBQ SCH ×5 (08:00→22:00)
[2016-08-23] MEDS: Lisinopril 40 Tablet PO SCH (09:48)
--- NOTE | 2016-08-23 10:17 | NUR ---
Evaluation completed. Please go to "Notes" then click on "Assessments and Notes" (bottom left corner of screen). Then select appropriate discipline tab on top of screen.
--- NOTE | 2016-08-23 15:33 | PROG NOTE ---
[address] [address] PROGRESS NOTE PATIENT: JAY BARNARD : 1940 MR#: [id number] ADMIT: 08/21/2016 JOB ID: [id number] DATE: 08/23/2016 SUBJECTIVE: The patient is a 76-year-old woman with treated squamous cell carcinoma of the anus. She received chemoradiation, completing in December 2007. Hemorrhoid surgery in November 2008, was benign. She had a 1.3 x 1.6 x 1.5 cm mass in the pancreatic tail on imaging from December 02, 2014. Concern was for possible carcinoid tumor. CT/PET imaging did not show any abnormal uptake in this region. She ultimately underwent surgical resection at the [facility] last March. Since our last evaluation in 2014, she also had hip replacement in June,. She was admitted to [facility] on August 21, 2016, with increased shortness of breath and anxiety. CT angiography showed bilateral right greater than left pulmonary emboli, and a left upper quadrant hematoma. She still has a right adrenal adenoma versus adenomyolipoma. Since hospitalization, she has been treated with IV heparin and is now on oral rivaroxaban (Xarelto) 15 mg by mouth twice daily. Her breathing is much more comfortable, although she remains on supplemental oxygen 2 L by nasal cannula. She has dyspnea with minimal exertion. OBJECTIVE: Vitals: T 36.8, P 63, R 16, BP 122/73, O2 saturation 98% on room air. Weight is 87.5 kg. HEENT: Conjunctivae pink. Mucous membranes moist. No oral lesions. Nodes: No adenopathy in the neck or axillae. Chest: Distant, but clear. Cardiac exam: Regular rate and rhythm with normal S1, S2. Abdomen: Soft, nontender, with normoactive bowel tones. No splenomegaly or masses. Genitourinary: Unremarkable. No perirectal skin changes. Extremities: No edema, 2+ distal pulses. No calf tenderness. LABORATORIES: WBC 7.8, hemoglobin 12.0, hematocrit 37.1%, platelets 407,000. Sodium 143, potassium 4.5, BUN 18, creatinine 0.7, glucose 144. AST 16, ALT 12, alkaline phosphatase 50. PT 12.1, INR 1.13. ASSESSMENT AND PLAN: 1. 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 No evidence of recurrent anal cancer. 2. Pancreatic tail mass: The patient had a 1.6 x 1.0 cm mass in the pancreatic tail, which was surgically resected at the [facility] in March 2016. We will obtain outside pathology from that procedure. As no further treatment was recommended, presumably findings were benign. 3. Bilateral pulmonary emboli: The patient's predisposing condition is prior right hip replacement and relative immobility. Agree with anticoagulation for six months, given her serious findings of bilateral right greater than left pulmonary emboli. She will be on Xarelto 15 mg by mouth twice daily. There is no need to monitor PT and INR, as this agent inhibits coagulation factor Xa. Consider additional evaluation for hereditary coagulopathy in the future, although there was a clear precipitating factor. The recent echocardiogram shows an ejection fraction of 65% to 70%, which is normal. Pulmonary artery pressures could not be estimated because of lack of a measurable tricuspid regurgitation jet velocity. If discharged, please schedule [facility]. We will check CBC, differential, platelets at that time, and review outside records. [place]
--- NOTE | 2016-08-23 16:05 | NUR ---
Social Work: Continued Discharge Planning: Numerical Control Router Operator met with patient at bedside to discuss discharge planning. SW provided patient with a list of Home Health providers. Patient states that she has had [facility] in the past , but she chose [facility]. SW gave [facility] access and notified Olivier with [facility] of the referral. Patient's F[facility]F faxed to [facility]. Patient likely to discharge home alone with [facility] PT and Nursing. SW will continue to follow. Plan: Home alone with [facility]. Patient family will transport home when discharged. SW will continue to follow. Gayle Rodrigues LMSW, ACM
--- NOTE | 2016-08-23 16:34 | NUR ---
RESPIRATORY Lung sounds are clear. PO2 on room air is in the mid 90's. Ambulated with SBA in the hallway. PO2 while ambulating continued to be in the low-mid 90's (92-94 %). Patient complained of some lightheadedness with ambulation but resolved quickly. Instructed patient RE: Pacing her activities and she verbalized understanding. Will continue to monitor.
--- NOTE | 2016-08-23 17:17 | NUR ---
ACTIVITY Hydrocodone 1 tab PO and an ice pack has been adequate for complaints of R knee pain. Tolerating liquids PO and her diet well. Denies nausea. No emesis noted. O2 d/cd. PO2 on room air in the mid 90's. Will continue to monitor. She complains of SOB with exertion but per patient her SOB is lesser as compared to when she was admitted. She was able to ambulate 20 feet in in the hallway and ambulates in the room with SBA. Tolerated activity fairly. Voiding without any problems. Patient continues to be on tele. Per television production clerk patient is on sinus rhythm; HR-60-70's.
--- NOTE | 2016-08-23 20:00 | PCM.PNMED ---
Subjective Date of Service Aug 23, 2016 Subjective Patient was seen and examined at bedside. Patient states that she is feeling improved, but still complains of SOB. Patient denies any chest pain, nausea, vomiting, diarrhea. No she still has some concerns about the patient's oxygenation status and she has still been requiring 2 L of oxygen throughout the day to maintain oxygen saturation levels especially with exertion. Exam Vital Signs Vital Sign - Last Date Time Temp Pulse Resp B/P Pulse Ox O2 Delivery O2 Flow Rate FiO2 08/23/16 16:58 94 Room Air 08/23/16 16:00 36.4 67 15 148/87 2.00 Intake and Output 08/22/16 08/22/16 08/23/16 Cumulative From/Thru 15:00 23:00 07:00 08/21/16 10:11 - 08/23/16 05:35 Intake Total 786 ml 750 ml 1644 ml Output Total 1050 ml 100 ml 1500 ml Balance -264 ml 650 ml 144 ml Intake Oral 786 ml 750 ml 1536 ml IV Total 108 ml Output Urine Total 1050 ml 100 ml 1500 ml # Bowel Movements 1 0 1 Exam Physical Exam: GEN: Patient was awake, alert, responding appropriately to questions HEENT: PERRLA, EOMI, Neck soft supple, trachea midline, nomocephalic/atraumatic , 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 CV: +S1/S2, RRR, no murmurs auscultated Respiratory: CTAB, no wheezes, rales, rhonchi GI: +bowel sounds x4, soft, compressible, non TTP EXT: no c/c/e Neuro: CN II-XII grossly intact Psych: mood and affect were appropriate IVs and Medications Medications Reviewed: Medications were reviewed in detail Medications Current Medications Fenofibrate 145 mg DAILY PO Last administered on 08/23/16 09:48; Admin Dose 145 MG; Start 08/22/16 at 08:30 Lisinopril 40 mg DAILY PO Last administered on 08/23/16 09:48; Admin Dose 40 MG ; Start 08/22/16 at 08:30 Rivaroxaban 15 mg BID PO Last administered on 08/23/16 09:49; Admin Dose 15 MG ; Start 08/21/16 at 20:30; Stop 09/11/16 at 08:31 Atorvastatin Calcium 20 mg HS PO Last administered on 1/18/17at 21:27; Admin Dose 20 MG; Start 08/21/16 at 21:00 Hydralazine HCl 5 mg Q6H PRN IV; Start 08/21/16 at 21:25 Metoprolol Tartrate 5 mg Q6H PRN IVPUSH; Start 08/21/16 at 21:25 Insulin Human Lispro [facility] SUBQ; Start 08/22/16 at 08:00 Lab and Diagnostics Result Diagram: 08/23/16 0555 08/23/16 0555 X-Rays, CTs and MRIs CT abdomen and pelvis: IMPRESSION: 1. Relatively unchanged appearance of likely left upper quadrant hematoma. 2. There is a low attenuation structure with rim enhancement within the subcutaneous fat of the left hip appearing to extend to the skin surface. This could be related to an old surgical seroma secondary to hip arthroplasty. Other etiologies can include abscess. Recommend clinical correlation to pain within this region and direct visualization of skin surface related to a potential fistulous tract. Dictated by: Yolis Broussard M.D. on 08/22/2016 at 16:47 Approved by: Yolis Broussard M.D. on 08/22/2016 at 16:47 CT angiogram: IMPRESSION: 1. Bilateral, right greater than left pulmonary emboli. 2. New left upper quadrant abnormality as described above, possibly indicating chronic hematoma. IV and oral contrast enhanced CT of the abdomen and pelvis is recommended for further assessment, and to exclude neoplasm. 3. No change in right adrenal adenoma versus adenomyelolipoma. 4. Findings discussed with Dr. Dugan on 08.21.16 at 1315 hrs. Dictated by: Allison Jones M.D. on 08/21/2016 at 13:26 Approved by: Allison Jones M.D. on 08/21/2016 at 13:26 Cardiac Echo Impressions Interpretation Summary Normal left ventricle size with ejection fraction 65-70%. Grade I diastolic dysfunction. Normal right ventricle size and function. Mildly dilated left atrium. Mild aortic valve sclerosis. Pulmonary artery pressures cannot be estimated because of the lack of a measurable TR jet velocity. Assessment & Plan 76-year-old female presents to the emergency room with the complaint of shortness of breath secondary to right greater than left pulmonary emboli. Right greater than left pulmonary embolism due to hypercoagulable state associated with splenectomy and recent hip replacement, complicated by incidental chronic hematoma and history of rectal cancer. -- Continue Xarelto -- Spoke with Dr. Leigh her oncologist today he came by to see the patient and will continue follow-up outpatient -- PT consulted and recommended the patient have outpatient physical therapy as she is still becoming short of breath with minimal exertion with desaturation down into the high 80s Question of Chronic hematoma on the lateral aspect of the chest CT and prior cancer history -- CT of the abdomen and pelvis was performed most likely this is an old surgical seroma secondary to hip arthroplasty. No current signs of infection, more likely consistent with a positive muscular skeletal tender point which responded well to counterstrain. -- We will continue to monitor Hypertension -- Currently stable -- Continue lisinopril 40 mg daily -- Continue metoprolol 5 mg every 6 hours when necessary and hydralazine 5 mg when necessary Hyperlipidemia -- Continue atorvastatin 20 mg daily at bedtime -- Continue TriCor 145 mg daily Prediabetes -- Accu-Cheks with insulin sliding scale for possible coverage -- Continue diabetic diet History of anxiety and depression -- Continue Xanax 0.5 mg 3 times a day when necessary History of Rectal cancer, s/p chemo and radiation pancreatectomy/splenectomy -- Spoke with Dr. Leigh her oncologist today he came by to see the patient and will continue follow-up outpatient. Dr Leigh recommends the patient go to a [facility]iary facility for rehabilitation. Previous problems prior to admission: Hysterectomy/urinary incontinence OAB DJD/osteoarthritis/left knee replacement Cholecystectomy Diet diabetic DVT prophylaxis anticoagulated on Xarelto Code full Disposition: Patient is currently still short of breath especially with exertion. Patient was assessed for home oxygen by respiratory therapy. During this time the patient's oxygen saturations did not fall below 90% on room air even with exertion. Patient will be monitored overnight for further oxygen desaturation/oxygen requirements. Patient will most likely be discharged tomorrow. VTE Prophylaxis: Other (Xeralto) VTE Mechanical Devices: Intermittant Pneumatic CD Resuscitation Status: CPR: Attempt Resuscitation Cassandra Stoddard DO Aug 23, 2016 20:00
--- NOTE | 2016-08-23 20:35 | NUR ---
spiritual care: pt request brief visit; pt with family. would appreciate visit later. will plan to follow
[2016-08-24 00:15] VITALS: BP 142/79; PULSE 70; RESP 18; O2SAT 97
[2016-08-24 05:17] VITALS: BP 164/89; PULSE 64; RESP 17; O2SAT 96
[2016-08-24 05:46] VITALS: PULSE 52
[2016-08-24 05:54] LABS: INR 1.14 ratio
--- NOTE | 2016-08-24 06:11 | NUR ---
Pain/anxiety Pt reports 4/10 L wrist pain and anxiety over family situation, Vicodin and Xanax given x1 each. Pt mostly asleep over night, up to BR with SBA, reports SOB with any kind of exertion, in RA all night.
[2016-08-24 08:00] VITALS: PULSE 70
[2016-08-24] MEDS: Insulin LISPRO 300 Unit/3 mL Inj SUBQ SCH ×2 (08:00→12:00)
[2016-08-24 08:32] VITALS: BP 166/78; PULSE 64; RESP 16; O2SAT 94
[2016-08-24] MEDS: Lisinopril 40 Tablet PO SCH (08:51)
[2016-08-24] MEDS: HYDROcodone-APAP 5-325 mg Tablet PO PRN (08:52)
--- NOTE | 2016-08-24 11:39 | PCM.DIMED ---
Discharge Instructions Date of Service Aug 24, 2016 Dates of Hospitalization Aug 21, 2016 at 15:45 Discharge Diagnosis Discharge Diagnosis Bilateral PE right greater than left Hypertension Hyperlipidemia Questionable chronic left hip hematoma Diet Diabetic Activity Other (as tolerated gradually return to daily activities) Call your provider Fever or Chills, Shortness of breath (short of breath more than current baseline ), Chest pain, Weakness (unilateral) Patient Instructions Follow-up with PCP in: 1 week Provider: Tyrell Leigh MD Follow-up in: 3 weeks Cassandra Stoddard DO Aug 24, 2016 11:39
--- NOTE | 2016-08-24 11:51 | PCM.DC.MED ---
Discharge Summary Date of Service Aug 24, 2016 Dates of Hospitalization Date of Hospital Admission Aug 21, 2016 at 15:45 Date of Discharge: Aug 24, 2016 Providers: Admitting Physician: Edvin Gusman MD Primary Care Physician: Pinky Nolen PA-C Attending Physician: Edvin Gusman MD Diagnosis at Time of Discharge Diagnosis at Time of Discharge Bilateral PE right greater than left Hypertension Hyperlipidemia Questionable chronic left hip hematoma Procedures XRay, CTs & MRIs CT abdomen and pelvis: IMPRESSION: 1. Relatively unchanged appearance of likely left upper quadrant hematoma. 2. There is a low attenuation structure with rim enhancement within the subcutaneous fat of the left hip appearing to extend to the skin surface. This could be related to an old surgical seroma secondary to hip arthroplasty. Other etiologies can include abscess. Recommend clinical correlation to pain within this region and direct visualization of skin surface related to a potential fistulous tract. Dictated by: Yolis Broussard M.D. on 08/22/2016 at 16:47 Approved by: Yolis Broussard M.D. on 08/22/2016 at 16:47 CT angiogram: IMPRESSION: 1. Bilateral, right greater than left pulmonary emboli. 2. New left upper quadrant abnormality as described above, possibly indicating chronic hematoma. IV and oral contrast enhanced CT of the abdomen and pelvis is recommended for further assessment, and to exclude neoplasm. 3. No change in right adrenal adenoma versus adenomyelolipoma. 4. Findings discussed with Dr. Dugan on 08.21.16 at 1315 hrs. Dictated by: Allison Jones M.D. on 08/21/2016 at 13:26 Approved by: Allison Jones M.D. on 08/21/2016 at 13:26 Cardiac Echo Impression Interpretation Summary Normal left ventricle size with ejection fraction 65-70%. Grade I diastolic dysfunction. Normal right ventricle size and function. Mildly dilated left atrium. Mild aortic valve sclerosis. Pulmonary artery pressures cannot be estimated because of the lack of a measurable TR jet velocity. Brief History 76-year-old female presents to the emergency room with the complaint of shortness of breath secondary to right greater than left pulmonary emboli. Hospital Course 76-year-old female presents to the emergency room with the complaint of shortness of breath secondary to right greater than left pulmonary emboli. Patient was anticoagulated with heparin and then switched over to Xeralto. There was question of a chronic left hematoma near the patient's surgical site. However it was noted to be an old surgical seroma secondary to her hip arthroplasty. At this time there is low suspicion for this being a concern that the patient may follow up as an outpatient with orthopedics. Patient stated that she will follow up with Dr. Leigh her oncologist in regards to this as well. Other medical conditions: Hypertension, hyperlipidemia, prediabetes have been well controlled and monitored while as an inpatient. Disposition: The patient still has been complaining of some shortness of breath with exertion however oxygen saturations have remained at 92% and above. The patient will not need to go home on oxygen however she will go home with home health services. The patient is encouraged to continue to gradually return to her normal activity however she is to do this slowly and to rest when needed due to her shortness of breath. The patient will continue to remain on Xeralto. During the patient's hospital stay Dr. Leigh her oncologist came to visit and has recommended that she follow-up with him in 3 weeks. Exam Vital Signs (Last) Date Time Temp Pulse Resp B/P Pulse Ox O2 Delivery O2 Flow Rate FiO2 08/24/16 08:32 36.9 64 16 166/78 94 Room Air 08/23/16 16:00 2.00 Exam Physical Exam: GEN: Patient was awake, alert, responding appropriately to questions HEENT: PERRLA, EOMI, Neck soft supple, trachea midline, nomocephalic/atraumatic CV: +S1/S2, RRR, no murmurs auscultated Respiratory: CTAB, no wheezes, rales, rhonchi GI: +bowel sounds x4, soft, compressible, non TTP EXT: no c/c/e Neuro: CN II-XII grossly intact Psych: mood and affect were appropriate Test 08/21/16 10:37 08/21/16 19:59 08/22/16 05:05 08/23/16 05:55 D-Dimer 12.3mg/L (<0.50) Magnesium Level 1.8mg/dL (1.6-2.6) Urine Color Yellow (YELLOW) Urine Appearance Clear (CLEAR,HAZY) Urine pH 6.0 (5.0-8.0) Urine Specific Delta 1.020 (1.003-1.035) Urine Protein Negativemg/dL (NEG,TRACE) Urine Glucose (UA) Negativemg/dL (NEGATIVE) Urine Ketones Negativemg/dL (NEGATIVE) Urine Occult Blood Negative (NEGATIVE) Urine Nitrite Negative (NEGATIVE) Urine Bilirubin Negative (NEGATIVE) Urine Urobilinogen Normalmg/dL (NORMAL) Urine Leukocyte Esterase Negative (NEGATIVE) Urine RBC 0-2/hpf (0-2) Urine WBC 0-5/hpf (0-5) Urine Epithelial Cells None/hpf (NONE-MOD) Urine Crystals None seen (NONE SEEN) Urine Bacteria Few/hpf (NONE-FEW) Urine Hyaline Casts None/lpf (NONE) Urine Granular Casts None seen (NONE SEEN) Urine Waxy Casts None seen (NONE SEEN) Urine Red Blood Cell Casts None seen (NONE SEEN) Urine White Blood Cell Casts None seen (NONE SEEN) Urine Mucus None seen (None Seen) Urine Trichomonas None seen (NONE SEEN) Urine Yeast None (NONE SEEN) Urinalysis Comment None Urine Culture Reflexed Not indicated Neutrophils (%) (Auto) 60.2% (40-74) Lymphocytes (%) (Auto) 22.3% (14-46) Monocytes (%) (Auto) 12.0% (4-12) Eosinophils (%) (Auto) 5.1% (0-5) Basophils (%) (Auto) 0.3% (0-3) Activated Partial Thromboplast Time 30.5sec (22.8-33.0) Troponin T 0.010ug/L (0.0-0.011) White Blood Count 7.8th/mm3 (3.8-10.1) Red Blood Count 3.98mil/mm3 (3.90-5.20) Hemoglobin 12.0g/dL (12.0-15.6) Hematocrit 37.1% (35.0-46.0) Mean Corpuscular Volume 93.2fL (81-100) Mean Corpuscular Hemoglobin 30.2pg (27.0-35.0) Mean Corpuscular Hemoglobin Concent 32.3% (32.0-37.0) Red Cell Distribution Width 13.8% (12.3-15.4) Platelet Count 407bil/L (150-400) Sodium Level 143mEq/L (134-144) Potassium Level 4.5mEq/L (3.5-5.2) Chloride Level 104mEq/L (97-108) Carbon Dioxide Level 26mmol/L (18-29) Blood Urea Nitrogen 18mg/dL (8-27) Creatinine 0.70mg/dL (0.57-1.00) Estimat Glomerular Filtration Rate 117mL/min (>59) Glucose Level 144mg/dL (60-99) Calcium Level 9.8mg/dL (8.5-10.1) Total Bilirubin 0.4mg/dL (0.0-1.2) Aspartate Amino Transf (AST/SGOT) 16U/L (0-50) Alanine Aminotransferase (ALT/SGPT) 12U/L (0-32) Alkaline Phosphatase 50U/L (25-165) Total Protein 6.6g/dL (6.4-8.4) Albumin 4.0g/dL (3.4-5.0) Test 08/24/16 05:00 Prothrombin Time 12.2sec (8.1-12.5) Prothromb Time International Ratio 1.14ratio Discharge Medications Discharge Medications Cholecalciferol (Vitamin D3) (Vitamin D3) 1,000 Unit Tab.chew 1,000 UNIT PO DAILY (Reported) Fenofibrate Nanocrystallized (Fenofibrate) 145 Mg Tablet 145 MG PO DAILY ( Reported) Lisinopril (Lisinopril) 40 Mg Tablet 40 MG PO DAILY (Reported) Multivitamin (Multi Vitamin Daily) 1 Each Tablet 1 EACH PO DAILY (Reported) [place]-3/Dha/Epa/Fish Oil (Fish Oil 1,000 mg Softgel) 1 Each Capsule 1 EACH PO DAILY (Reported) Rivaroxaban (Xarelto) 10 Mg Tablet 10 MG PO DAILY Prescribed by: AUSTIN CHAMBERLAIN Simvastatin (Simvastatin) 20 Mg Tablet 20 MG PO HS (Reported) As needed Hydrocodone-Acetaminophen 5-325 mg (Hydrocodone-Acetaminophen 5-325 mg) 1 Each Tablet 1 TABLET PO Q6H PRN PRN For Pain (Reported) Followup Plan Discharge Diet: Diabetic Discharge Activity: Other (as tolerated gradually return to daily activities) Follow-up with PCP in: 1 week Provider: Tyrell Leigh MD Follow-up in: 3 weeks Cassandra Stoddard DO Aug 24, 2016 11:51
[2016-08-24] MEDS ORDERED: ALPR0.5T8 PO (12:04)
[2016-08-24] MEDS: ALPRAZolam 0.5 mg Tablet PO PRN (14:06)
--- NOTE | 2016-08-24 14:25 | NUR ---
discharge Orders to discharge pt to home. IV d/c'd intact. Reviewed discharge instructions and medications with pt, verbalized understanding. Hard copy of Rx for xanax given to pt. Pt also given dose of xanax prior to discharge for increased anxiety "I get anxious thinking about all this". Pt will be driven home by her son-in-law, instructed not to drive or operate machinery if taking xanax. Care notes provided on xanax, pulmonary embolism, hypertension, xaralto. Pt to f/u with Dr. Leigh in 3 weeks, instructed to call for appt, phone number given. Pt to f/u with PCP Pinky Nolen PA-C, phone number provided and pt instructed to call. Escorted out via wheelchair with PROCESS ENGINEERING MANAGER with all belongings and pt left in stable condition with son-in-law driving her home. Discharged to home at 1420.
--- NOTE | 2016-08-24 15:26 | NUR ---
Social Work : Discharge Wire Weaver Helper called [facility] and Notified them that the patient discharged home. jordy Rodrigues, PABLO, ACM
[2016-09-06] MEDS ORDERED: CITA20TA11 PO (09:43)
== END 2016-08-24 14:21 | disposition home health service (06) | DRG 176 ==
LOC: SED 10:06 → OSC 15:45
PROVIDERS: ADMIT Urology; ATTEND Urology
DX: I26.99 Other pulmonary embolism without acute cor pulmonale (principal); F41.9 Anxiety disorder, unspecified; I10 Essential (primary) hypertension; E78.5 Hyperlipidemia, unspecified; Z96.642 Presence of left artificial hip joint; M17.12 Unilateral primary osteoarthritis, left knee; Z88.0 Allergy status to penicillin; Z98.890 Other specified postprocedural states; Z79.82 Long term (current) use of aspirin; Z90.81 Acquired absence of spleen; Z85.048 Personal history of other malignant neoplasm of rectum, rectosigmoid junction, and anus